=== PATIENT | female | born 1940 | race Caucasian/White ===

== ENCOUNTER 2019-06-02 16:03 | Emergency (ER) | payer MEDICAID, MEDICARE ==
[~2019-06-02] VITALS: Ht 154.9 cm; Wt 52.3 kg
[~2019-06-02 16:03] MED LIST: AMIT25TA9 PO; DULO60CA44 PO; LEVO100 PO; LORA-999 PO; MELA5TAB3 PO; METO50 PO; MIRT15 PO; ONDA4 PO; OXYC-601 PO; PANT40TA25 PO; PREG25 PO; ZOLP5 PO
[2019-06-02] MEDS ORDERED: ACETAMINOPHEN 500 MG TABLET PO ONE (18:15)
[2019-06-02] MEDS ORDERED: LIDOCAINE 5% 36 GM OINTMENT TP ONE (18:15)
[2019-06-02] MEDS ORDERED: OxyCODONE HCL 5 MG IR TABLET PO ONE (19:15)
[2019-06-02] MEDS ORDERED: NAPROXEN 250 MG TABLET PO ONE (19:15)
[2019-06-02] MEDS ORDERED: KETOROLAC TROMETHAMINE 30 MG/ML VIAL IM ONE (19:30)
[2019-06-02 20:30] VITALS: BP 141/77
== END 2019-06-02 21:26 | disposition home or self-care (01) ==
LOC: EMS 16:08
DX: M54.5 Low back pain (principal); G89.29 Other chronic pain; F41.9 Anxiety disorder, unspecified; F32.9 Major depressive disorder, single episode, unspecified; E03.9 Hypothyroidism, unspecified
CPT/HCPCS: 72100; 96372; 99284; J1885

== ENCOUNTER 2019-06-04 19:20 | Emergency (ER) | payer MEDICARE, MEDICAID ==
[~2019-06-04] VITALS: Ht 157.5 cm; Wt 63.6 kg
[~2019-06-04 19:20] MED LIST changes: +ONDA-104 PO; -ONDA4 PO
[2019-06-04] MEDS ORDERED: LIDOCAINE 5% TRANSDERMAL PATCH TD ONE (20:30)
[2019-06-04] MEDS ORDERED: KETOROLAC TROMETHAMINE 30 MG/ML VIAL IM ONE (20:30)
[2019-06-04 22:24] VITALS: BP 131/68
== END 2019-06-04 22:37 | disposition home or self-care (01) ==
LOC: EMS 19:21
DX: G89.29 Other chronic pain (principal); M54.5 Low back pain; E03.9 Hypothyroidism, unspecified; F41.9 Anxiety disorder, unspecified; F32.9 Major depressive disorder, single episode, unspecified; F03.90 Unspecified dementia, unspecified severity, without behavioral disturbance, psychotic disturbance, mood disturbance, and anxiety; Z98.890 Other specified postprocedural states; Z79.899 Other long term (current) drug therapy
CPT/HCPCS: 96372; 99283; J1885

== ENCOUNTER 2019-06-06 14:33 | Inpatient (IN) | payer MEDICARE, MEDICAID ==
[~2019-06-06] VITALS: Ht 154.9 cm; Wt 63.0 kg
[~2019-06-06 14:33] MED LIST changes: -MELA5TAB3 PO; -METO50 PO
[2019-06-06] MEDS ORDERED: OxyCODONE HCL/ACETAMINOPHEN 5-325 MG TABLET PO ONE (15:30)
[2019-06-06 15:52] LABS: BASOPHILS % (AUTO) 0.5 % (0.0-2.0); EOSINOPHILS % (AUTO) 2.1 % (1.0-6.0); HEMATOCRIT 29.5 % (36-46); LYMPHOCYTES # (AUTO) 1.1 K/uL (1.0-4.8); LYMPHOCYTES % (AUTO) 12.6 % (22.0-44.0); MEAN CORPUSCULAR HEMOGLOBIN 31.5 pg (26.0-34.0); MEAN CORPUSCULAR VOLUME 93 fL (80-100); MONOCYTES # (AUTO) 0.6 K/uL (0.1-1.0); NEUTROPHILS % (AUTO) 77.8 % (40.0-70.0); PLATELET COUNT (AUTO) 284 K/uL (150-450); RED BLOOD CELL COUNT(AUTO) 3.19 MIL/uL (4.00-5.20); RED CELL DISTRIBUTION WIDTH 14.8 % (11.5-14.5)
[2019-06-06 16:10] LABS: ANION GAP 8 mmol/L (8-16); CALCIUM, TOTAL 8.5 mg/dL (8.8-10.5); CARBON DIOXIDE 32 mmol/L (22-29); CHLORIDE 101 mmol/L (98-107); CREATININE 0.88 mg/dL (0.60-1.30); GLUCOSE,RANDOM 104 mg/dL (70-110); POTASSIUM 3.2 mmol/L (3.5-5.1); SODIUM SERUM 141 mmol/L (136-145); UREA NITROGEN, BLOOD 19 mg/dL (7-18)
[2019-06-06 16:11] LABS: GLOMERULAR FILTR. RATE CALC > 60 mL/min (>60)
[2019-06-06 16:17] LABS: ALANINE AMINOTRANSFERASE 126 U/L (12-78); ALBUMIN 3.2 g/dL (3.4-5.0); ALKALINE PHOSPHATASE 115 U/L (46-116); ASPARTATE AMINOTRANSFERASE 42 U/L (15-37); BILIRUBIN,TOTAL 0.5 mg/dL (0.1-1.0); TOTAL PROTEIN, SERUM 6.8 g/dL (6.4-8.2)
[2019-06-06 16:28] LABS: B-TYPE NATRIURETIC PEPTIDE 616 pg/mL (0-100)
[2019-06-06] MEDS ORDERED: POTASSIUM CHLORIDE 20 MEQ ER TABLET PO ONE (18:15)
[2019-06-06] MEDS ORDERED: 0.9% SODIUM CHLORIDE 10 ML SYRINGE IVP PRN ×2 (18:45→22:30)
[2019-06-06] MEDS ORDERED: ACETAMINOPHEN 325 MG TABLET PO PRN (18:45)
[2019-06-06] MEDS ORDERED: ONDANSETRON HCL 4 MG/2 ML VIAL IVP PRN ×2 (18:45→22:30)
[2019-06-06 22:04] VITALS: BP 119/57
[2019-06-06] MEDS ORDERED: POTASSIUM CHL 10 MEQ/WATER 50 ML IV PRN (22:30)
[2019-06-06] MEDS ORDERED: ZOLPIDEM TARTRATE 5 MG TABLET PO PRN (22:30)
[2019-06-06] MEDS ORDERED: POTASSIUM CHLORIDE 20 MEQ ER TABLET PO PRN (22:30)
[2019-06-06] MEDS ORDERED: MAGNESIUM SULFATE 4 GM/WATER 100 ML IV PRN (22:30)
[2019-06-06] MEDS ORDERED: MAGNESIUM SULFATE 2 GM/WATER 50 ML IV PRN (22:30)
[2019-06-06] MEDS ORDERED: MAGNESIUM OXIDE 400 MG TABLET PO PRN (22:30)
[2019-06-06] MEDS ORDERED: ONDANSETRON HCL 4 MG TABLET PO PRN (22:30)
[2019-06-06 23:32] VITALS: BP 133/62
[2019-06-07] MEDS: PREGABALIN 25 MG CAPSULE PO SCH ×3 (00:03→20:28)
[2019-06-07] MEDS: MIRTAZAPINE 15 MG TABLET PO SCH ×2 (00:03→20:28)
[2019-06-07] MEDS: ZOLPIDEM TARTRATE 5 MG TABLET PO SCH ×2 (00:03→20:28)
[2019-06-07 05:24] VITALS: BP 134/74
[2019-06-07] MEDS: LEVOTHYROXINE SODIUM 100 MCG TABLET PO SCH (05:33)
[2019-06-07 07:33] VITALS: BP 142/75
[2019-06-07 07:51] LABS: CALCIUM, TOTAL 8.1 mg/dL (8.8-10.5); CREATININE 0.94 mg/dL (0.60-1.30); MAGNESIUM 1.9 mg/dL (1.80-2.40); POTASSIUM 3.3 mmol/L (3.5-5.1)
[2019-06-07 07:52] LABS: BASOPHILS % (AUTO) 0.7 % (0.0-2.0); EOSINOPHILS % (AUTO) 4.6 % (1.0-6.0); HEMATOCRIT 26.3 % (36-46); LYMPHOCYTES # (AUTO) 1.7 K/uL (1.0-4.8); LYMPHOCYTES % (AUTO) 21.7 % (22.0-44.0); MEAN CORPUSCULAR HEMOGLOBIN 31.7 pg (26.0-34.0); MEAN CORPUSCULAR HGB CONC 34.3 G/dL (31.0-37.0); MEAN CORPUSCULAR VOLUME 92 fL (80-100); MONOCYTES # (AUTO) 0.8 K/uL (0.1-1.0); MONOCYTES % (AUTO) 9.6 % (2.0-9.0); NEUTROPHILS % (AUTO) 63.4 % (40.0-70.0); PLATELET COUNT (AUTO) 260 K/uL (150-450); RED BLOOD CELL COUNT(AUTO) 2.84 MIL/uL (4.00-5.20)
[2019-06-07] MEDS: DULoxetine HCL 60 MG CAPSULE PO SCH (08:07)
[2019-06-07] MEDS: PANTOPRAZOLE SODIUM 40 MG DR TABLET PO SCH (08:07)
[2019-06-07] MEDS: DOCUSATE SODIUM 100 MG CAPSULE PO SCH ×2 (08:07→20:28)
[2019-06-07] MEDS: LORazepam 0.5 MG TABLET PO SCH ×4 (08:07→21:00)
[2019-06-07] MEDS ORDERED: MAGNESIUM SULFATE 2 GM/WATER 50 ML IV PRN (09:15)
[2019-06-07] MEDS ORDERED: MAGNESIUM SULFATE 4 GM/WATER 100 ML IV PRN (09:15)
[2019-06-07] MEDS ORDERED: POTASSIUM CHL 10 MEQ/WATER 50 ML IV PRN (09:15)
[2019-06-07] MEDS ORDERED: POTASSIUM CHLORIDE 20 MEQ ER TABLET PO PRN (09:15)
[2019-06-07] MEDS ORDERED: MAGNESIUM OXIDE 400 MG TABLET PO PRN (09:15)
[2019-06-07 09:53] LABS: ALBUMIN 2.8 g/dL (3.4-5.0); THYROID STIMULATING HORMONE 29.57 uIU/mL (0.36-3.74)
[2019-06-07] MEDS: ASPIRIN 81 MG CHEWABLE TABLET PO SCH (10:13)
[2019-06-07 10:59] VITALS: BP 124/83
[2019-06-07] MEDS: OxyCODONE HCL/ACETAMINOPHEN 10-325 MG TABLET PO PRN ×2 (11:33→18:39)
[2019-06-07 16:12] VITALS: BP 130/69
[2019-06-07 20:20] VITALS: BP 146/72
[2019-06-07] MEDS: AMITRIPTYLINE HCL 25 MG TABLET PO SCH (20:28)
[2019-06-07 23:54] VITALS: BP 157/79
[2019-06-08 04:11] VITALS: BP 163/99
[2019-06-08] MEDS ORDERED: LEVOTHYROXINE SODIUM 25 MCG TABLET PO SCH (06:30)
[2019-06-08] MEDS: LEVOTHYROXINE SODIUM 100 MCG TABLET PO SCH (06:44)
[2019-06-08 07:42] LABS: BASOPHILS % (AUTO) 1.3 % (0.0-2.0); EOSINOPHILS % (AUTO) 5.2 % (1.0-6.0); HEMATOCRIT 27.9 % (36-46); HEMOGLOBIN 9.3 g/dL (12.0-16.0); LYMPHOCYTES # (AUTO) 1.7 K/uL (1.0-4.8); LYMPHOCYTES % (AUTO) 17.6 % (22.0-44.0); MEAN CORPUSCULAR HEMOGLOBIN 30.8 pg (26.0-34.0); MEAN CORPUSCULAR HGB CONC 33.4 G/dL (31.0-37.0); MEAN CORPUSCULAR VOLUME 92 fL (80-100); MONOCYTES # (AUTO) 0.9 K/uL (0.1-1.0); MONOCYTES % (AUTO) 9.8 % (2.0-9.0); NEUTROPHILS # (AUTO) 6.2 K/uL (1.8-7.7); NEUTROPHILS % (AUTO) 66.1 % (40.0-70.0); PLATELET COUNT (AUTO) 278 K/uL (150-450); RED BLOOD CELL COUNT(AUTO) 3.03 MIL/uL (4.00-5.20); RED CELL DISTRIBUTION WIDTH 15.1 % (11.5-14.5)
[2019-06-08 07:48] VITALS: BP 160/97
[2019-06-08 08:00] LABS: CALCIUM, TOTAL 8.3 mg/dL (8.8-10.5); CREATININE 0.94 mg/dL (0.60-1.30); MAGNESIUM 1.8 mg/dL (1.80-2.40); POTASSIUM 3.8 mmol/L (3.5-5.1)
[2019-06-08] MEDS: PREGABALIN 25 MG CAPSULE PO SCH ×2 (08:28→20:25)
[2019-06-08] MEDS: ASPIRIN 81 MG CHEWABLE TABLET PO SCH (08:28)
[2019-06-08] MEDS: PANTOPRAZOLE SODIUM 40 MG DR TABLET PO SCH (08:28)
[2019-06-08] MEDS: DULoxetine HCL 60 MG CAPSULE PO SCH (08:28)
[2019-06-08] MEDS: LORazepam 0.5 MG TABLET PO SCH ×3 (08:28→20:26)
[2019-06-08] MEDS: DOCUSATE SODIUM 100 MG CAPSULE PO SCH ×2 (08:28→20:26)
[2019-06-08] MEDS: OxyCODONE HCL/ACETAMINOPHEN 10-325 MG TABLET PO PRN ×2 (08:29→21:01)
[2019-06-08 11:55] VITALS: BP 138/81
[2019-06-08 15:35] VITALS: BP 155/88
[2019-06-08 20:23] VITALS: BP 150/76
[2019-06-08] MEDS: AMITRIPTYLINE HCL 25 MG TABLET PO SCH (20:26)
[2019-06-08] MEDS: MIRTAZAPINE 15 MG TABLET PO SCH (20:26)
[2019-06-08] MEDS: ZOLPIDEM TARTRATE 5 MG TABLET PO SCH (21:00)
[2019-06-08 23:35] VITALS: BP 140/76
[2019-06-09 04:23] VITALS: BP 156/85
[2019-06-09] MEDS: LEVOTHYROXINE SODIUM 100 MCG TABLET PO SCH (05:41)
[2019-06-09] MEDS: LORazepam 0.5 MG TABLET PO SCH ×2 (06:54→15:26)
[2019-06-09 07:29] VITALS: BP 188/97
[2019-06-09] MEDS: PANTOPRAZOLE SODIUM 40 MG DR TABLET PO SCH (07:30)
[2019-06-09] MEDS: DULoxetine HCL 60 MG CAPSULE PO SCH (07:30)
[2019-06-09] MEDS: DOCUSATE SODIUM 100 MG CAPSULE PO SCH (07:30)
[2019-06-09] MEDS: OxyCODONE HCL/ACETAMINOPHEN 10-325 MG TABLET PO PRN ×2 (07:31→15:31)
[2019-06-09] MEDS: ASPIRIN 81 MG CHEWABLE TABLET PO SCH (07:31)
[2019-06-09] MEDS: PREGABALIN 25 MG CAPSULE PO SCH (07:31)
[2019-06-09] MEDS ORDERED: NIFEdipine 30 MG ER TABLET PO ONE (10:45)
[2019-06-09 11:24] VITALS: BP 156/76
[2019-06-09 15:41] VITALS: BP 139/64
== END 2019-06-09 17:10 | DRG 641 ==
LOC: EMS 15:55 → 5S 19:17
PROVIDERS: ADMIT Internal Medicine; ATTEND Internal Medicine
DX: E87.6 Hypokalemia (principal); F33.2 Major depressive disorder, recurrent severe without psychotic features; R45.851 Suicidal ideations; E03.9 Hypothyroidism, unspecified; G89.29 Other chronic pain; M54.9 Dorsalgia, unspecified; F03.90 Unspecified dementia, unspecified severity, without behavioral disturbance, psychotic disturbance, mood disturbance, and anxiety; F41.9 Anxiety disorder, unspecified; Z86.73 Personal history of transient ischemic attack (TIA), and cerebral infarction without residual deficits
CPT/HCPCS: 70450; 72100; 72125; 83735; 84132; 84443; 93005

== ENCOUNTER 2020-05-04 09:54 | Emergency (ER) | payer MEDICARE, MEDICAID ==
[~2020-05-04] VITALS: Ht 160 cm; Wt 63.6 kg
[~2020-05-04 09:54] MED LIST changes: +DULO-8 PO; -DULO60CA44 PO; +MIRT-89 PO; -MIRT15 PO; +PANT-31 PO; -PANT40TA25 PO; +ZOLP-280 PO; -ZOLP5 PO
[2020-05-04] MEDS ORDERED: ATOR10TA84 PO (10:48)
[2020-05-04] MEDS ORDERED: ASPI-728 PO (10:48)
[2020-05-04 10:54] LABS: GLUCOSE,POINT OF CARE 112 MG/DL (70-110)
[2020-05-04 11:41] LABS: APPEARANCE,URINE CLEAR (CLEAR); BILIRUBIN,URINE NEGATIVE (NEGATIVE); GLUCOSE, URINE (UA) NEGATIVE (NEGATIVE); KETONES,URINE NEGATIVE (NEGATIVE); LEUKOCYTE ESTERASE ,URINE SMALL (NEGATIVE); NITRATE,URINE NEGATIVE (NEGATIVE); OCCULT BLOOD,URINE NEGATIVE (NEGATIVE); PROTEIN,URINE NEGATIVE (NEGATIVE); UROBILINOGEN,URINE 0.2 mg/dL (<=1.0)
[2020-05-04 11:57] LABS: BACTERIA,URINE None Seen /HPF (None Seen); RBC,URINE None Seen /HPF (0-2); SQUAMOUS EPITHELIAL CELL,UR Few /LPF (None Seen); WBC,URINE 0-2 /HPF (0-5)
[2020-05-04 11:58] LABS: AMPHET/METH SCREEN,URINE NEGATIVE (NEGATIVE); BARBITURATE SCREEN, URINE NEGATIVE (NEGATIVE); BENZODIAZEPINES SCREEN,URINE NEGATIVE (NEGATIVE); CANNABINOID SCREEN,URINE NEGATIVE (NEGATIVE); COCAINE SCREEN,URINE NEGATIVE (NEGATIVE); METHADONE SCREEN, URINE NEGATIVE (NEGATIVE); OPIATE SCREEN,URINE POSITIVE (NEGATIVE)
[2020-05-04 11:59] LABS: BASOPHILS % (AUTO) 0.9 % (0.0-2.0); EOSINOPHILS % (AUTO) 2.6 % (1.0-6.0); HEMOGLOBIN 12.1 g/dL (12.0-16.0); LYMPHOCYTES # (AUTO) 0.8 K/uL (1.0-4.8); LYMPHOCYTES % (AUTO) 15.2 % (22.0-44.0); MEAN CORPUSCULAR HGB CONC 32.8 G/dL (31.0-37.0); MEAN CORPUSCULAR VOLUME 91 fL (80-100); MONOCYTES # (AUTO) 0.5 K/uL (0.1-1.0); MONOCYTES % (AUTO) 8.8 % (2.0-9.0); NEUTROPHILS # (AUTO) 3.8 K/uL (1.8-7.7); NEUTROPHILS % (AUTO) 72.5 % (40.0-70.0); PLATELET COUNT (AUTO) 214 K/uL (150-450); RED BLOOD CELL COUNT(AUTO) 4.05 MIL/uL (4.00-5.20); RED CELL DISTRIBUTION WIDTH 14.6 % (11.5-14.5)
[2020-05-04 12:00] LABS: PHENCYCLIDINE SCREEN,URINE NEGATIVE (NEGATIVE)
[2020-05-04 12:08] LABS: ANION GAP 5 mmol/L (8-16); CALCIUM, TOTAL 9.2 mg/dL (8.8-10.5); CARBON DIOXIDE 33 mmol/L (22-29); CHLORIDE 99 mmol/L (98-107); CREATININE 0.87 mg/dL (0.60-1.30); GLOMERULAR FILTR. RATE CALC > 60 mL/min (>60); GLUCOSE,RANDOM 112 mg/dL (70-110); POTASSIUM 3.4 mmol/L (3.5-5.1); SODIUM SERUM 137 mmol/L (136-145); UREA NITROGEN, BLOOD 12 mg/dL (7-18)
[2020-05-04 12:22] LABS: ALANINE AMINOTRANSFERASE 20 U/L (12-78); ALBUMIN 4.1 g/dL (3.4-5.0); ALKALINE PHOSPHATASE 114 U/L (46-116); ASPARTATE AMINOTRANSFERASE 30 U/L (15-37); BILIRUBIN,TOTAL 0.5 mg/dL (0.1-1.0); FREE T4 (FREE THYROXINE) 1.36 ng/dL (0.76-1.46); THYROID STIMULATING HORMONE 0.37 uIU/mL (0.36-3.74); TOTAL PROTEIN, SERUM 7.8 g/dL (6.4-8.2)
[2020-05-04 12:59] LABS: COVID AG,FIA SOURCE NASOPHARYNGEAL
[2020-05-04] MEDS ORDERED: POTASSIUM CHLORIDE 20 MEQ ER TABLET PO ONE (13:00)
[2020-05-04] MEDS ORDERED: DIGO125T71 PO (13:37)
[2020-05-04] MEDS ORDERED: CARV12.530 PO (13:37)
[2020-05-04] MEDS ORDERED: CLOP75TA32 PO (13:37)
[2020-05-04] MEDS ORDERED: HYD25 PO (13:37)
[2020-05-04] MEDS ORDERED: LISI-618 PO (13:37)
[2020-05-04] MEDS ORDERED: ATOR40TA28 PO (13:37)
[2020-05-04] MEDS ORDERED: PREG50 PO (13:37)
[2020-05-04] MEDS ORDERED: TraMADol HCL 50 MG TABLET PO ONE (13:45)
[2020-05-04 18:30] VITALS: BP 152/87
== END 2020-05-04 18:54 | disposition short-term general hospital (02) ==
LOC: EMS 09:56
DX: F32.9 Major depressive disorder, single episode, unspecified (principal); R45.851 Suicidal ideations; E87.6 Hypokalemia; M54.5 Low back pain; F41.9 Anxiety disorder, unspecified; Z20.828 Contact with and (suspected) exposure to other viral communicable diseases; Z87.39 Personal history of other diseases of the musculoskeletal system and connective tissue; Z86.73 Personal history of transient ischemic attack (TIA), and cerebral infarction without residual deficits; Z79.82 Long term (current) use of aspirin
CPT/HCPCS: 36415; 80053; 80307; 81001; 82962; 84439; 84443; 84484; 85025; 87426; 99285; G0480